=== PATIENT | male | born 1995 | race Caucasian/White ===

== ENCOUNTER → 2018-08-19 | Outpatient (REF) | payer OTHER ==
[2018-08-19 12:12] LABS: ESTIMATED AVERAGE GLUCOSE 108 MG/DL (60-110); HEMOGLOBIN A1c 5.4 %
[2018-08-19 12:24] LABS: CHOLESTEROL LEVEL 189 MG/DL (<200); CHOLESTEROL RISK RATIO 5.906 (<5); HDL CHOLESTEROL 32 MG/DL (>40); LDL CHOLESTEROL 127 MG/DL (<100); NON-HDL-C 157 MG/DL; TRIGLYCERIDES LEVEL 151 MG/DL (<150)
== END ==
LOC: M SFHCLERA 09:57
DX: E66.09 Other obesity due to excess calories (principal)

== ENCOUNTER → 2018-09-14 | Outpatient (REF) | payer OTHER ==
[2018-09-14 11:55] LABS: PROGRESSIVE MOTILITY (a) 47 % (>=32); SEMEN APPEARANCE OPAQUE (OPAQUE); SEMEN VISCOSITY LIQUID (LIQUID); WBC CONCENTRATION <=1 M/ml (<=1 M/ml)
[2018-09-14 11:56] LABS: % NORMAL FORMS 11 % (>=4); IMMOTILITY 37 %; NON PROGRESSIVE MOTILITY (c) 16 %; SPERM# 86.9 M/Ejac (>=39); TOTAL FUNCTIONAL 10.1 M/Ejac.; TOTAL MOTILITY 63 % (>=40)
[2018-09-16 11:26] LABS: TOTAL PROGRESSIVE SPERM 40.9 M/Ejac.
== END ==
LOC: M SFHCLERA 11:20
DX: Z31.69 Encounter for other general counseling and advice on procreation (principal)
CPT/HCPCS: 89321

== ENCOUNTER → 2018-09-20 | Outpatient (CLI) | payer OTHER | LOC: M RAD 14:20 | DX: N50.9 Disorder of male genital organs, unspecified (principal); N43.3 Hydrocele, unspecified | CPT/HCPCS: 76870 ==

== ENCOUNTER 2020-07-26 20:56 | Emergency (ER) | payer OTHER ==
[~2020-07-26] VITALS: Ht 170.2 cm; Wt 112.6 kg
[2020-07-26] MEDS ORDERED: VALT1TAB PO (22:38)
[2020-07-26] MEDS ORDERED: valACYclovir HCL 500 MG TAB PO ONE (22:45)
[2020-07-26 22:54] VITALS: BP 148/88
[2020-07-26 23:01] LABS: CHLAMYDIA DNA AMPLIFICATION NEGATIVE (NEGATIVE); GC DNA AMPLIFICATION NEGATIVE (NEGATIVE)
[2020-08-01 08:10] LABS: HSV-1 DNA Negative (Negative); HSV-2 DNA Negative (Negative)
== END 2020-07-26 22:56 | disposition home or self-care (01) ==
LOC: M ED 20:56
DX: A60.02 Herpesviral infection of other male genital organs (principal); N48.5 Ulcer of penis; K58.9 Irritable bowel syndrome, unspecified

== ENCOUNTER → 2020-09-11 | Outpatient (CLI) | payer OTHER ==
[~2020-09-11] MED LIST: VALT1TAB PO
--- NOTE | 2020-09-11 15:56 | REPVR ---
PROCEDURE INFORMATION: Exam: US Scrotum Exam date and time: 09/11/2020 3:43 PM Age: 25 years old Clinical indication: Other: Left lump; Additional info: Testicular mass TECHNIQUE: Imaging protocol: Real-time ultrasound of the scrotum and contents with color Doppler and image documentation. COMPARISON: Scrotal, US 09/20/2018 2:35 PM FINDINGS: Right testicle: Right testicle measures 4.6 x 2.2 x 3.2 cm. Positive right testicular blood flow. No right testicular mass. Left testicle: Left testicle measures 4.4 x 2.4 x 3.2 cm. Positive left testicular blood flow. No left testicular mass. Epididymides: Incidental 2 mm right epididymal cyst. Chronic mild heterogeneity of the left epididymal head. Scrotum: Normal. IMPRESSION: No significant scrotal abnormality. Electronically signed by: Marcia Valderrama On 09/11/2020 15:56:47 PM
== END ==
LOC: M RAD 15:07
PROVIDERS: ATTEND Nurse Practitioner Family
DX: N50.89 Other specified disorders of the male genital organs (principal)

== ENCOUNTER → 2020-10-26 | Outpatient (REF) | payer OTHER ==
[2020-10-26 17:34] LABS: INFLUENZA A AMPLIFICATION NEGATIVE (NEGATIVE); INFLUENZA B AMPLIFICATION NEGATIVE (NEGATIVE)
== END ==
LOC: M LAB REF 16:17
PROVIDERS: ATTEND Physician Assistant Medical
DX: J11.1 Influenza due to unidentified influenza virus with other respiratory manifestations (principal)

== ENCOUNTER 2020-11-03 17:03 | Emergency (ER) | payer OTHER ==
[~2020-11-03] VITALS: Ht 170.2 cm; Wt 107.1 kg
[2020-11-03] MEDS ORDERED: NS 1,000 ML IV ONE (18:00)
[2020-11-03] MEDS ORDERED: ONDANSETRON 4MG/2ML VIAL IV ONE (18:00)
[2020-11-03 18:32] LABS: BASO % 0.1 % (0.0-1.0); EOS # 0.1 10^3/uL (0.0-0.5); EOS % 0.9 % (0.0-3.0); HEMATOCRIT 46.3 % (42.0-52.0); HEMOGLOBIN 15.1 g/dl (13.5-17.5); LYMPH # 1.6 10^3/uL (1.5-5.0); LYMPH % 22.7 % (24.0-44.0); MEAN CORPUSCULAR HEMOGLOBIN 27.3 pg (27.0-33.0); MEAN CORPUSCULAR HGB CONC 32.6 g/dl (32.0-36.5); MEAN CORPUSCULAR VOLUME 83.6 fl (80.0-96.0); MONO # 0.4 10^3/uL (0.0-0.8); NEUTROPHILS # 4.9 10^3/uL (1.5-8.5); NEUTROPHILS % 69.7 % (36.0-66.0); PLATELET COUNT, AUTOMATED 244 10^3/uL (150-450); RED BLOOD COUNT 5.54 10^6/uL (4.30-6.10)
[2020-11-03 19:01] LABS: ALT/SGPT 32 U/L (12-78); BLOOD UREA NITROGEN 15 MG/DL (7-18); CALCIUM LEVEL 8.5 MG/DL (8.5-10.1); CARBON DIOXIDE LEVEL 27 MEQ/L (21-32); CHLORIDE LEVEL 109 MEQ/L (98-107); CREATININE FOR GFR 1.15 MG/DL (0.70-1.30); GLOMERULAR FILTRATION RATE > 60.0 (>60); GLUCOSE, FASTING 87 MG/DL (70-100); POTASSIUM SERUM 3.8 MEQ/L (3.5-5.1); SODIUM LEVEL 142 MEQ/L (136-145)
[2020-11-03 19:02] LABS: ALBUMIN 3.9 GM/DL (3.2-5.2); BILIRUBIN,DIRECT 0.1 MG/DL (0.0-0.2); BILIRUBIN,TOTAL 0.6 MG/DL (0.2-1.0); LIPASE 92 U/L (73-393); RSV AMPLIFICATION NEGATIVE (NEGATIVE); TOTAL PROTEIN 7.9 GM/DL (6.4-8.2)
[2020-11-03 19:07] LABS: MONO REFLEX EBV COMP NEGATIVE (NEGATIVE)
[2020-11-03] MEDS ORDERED: ZOFR4TAB16 PO (19:57)
[2020-11-03 20:28] VITALS: BP 131/69
--- NOTE | 2020-11-03 20:32 | REPVR ---
PROCEDURE INFORMATION: Exam: XR Chest, 1 View Exam date and time: 11/03/2020 8:12 PM Age: 25 years old Clinical indication: Cough; Additional info: Cough, fever TECHNIQUE: Imaging protocol: XR of the chest Views: 1 view. COMPARISON: No relevant prior studies available. FINDINGS: Lungs: Right lower lung zone infiltrate. Remaining lungs are clear. Pleural space: Unremarkable. No pleural effusion. No pneumothorax. Heart/Mediastinum: Unremarkable. No cardiomegaly. Bones/joints: Unremarkable. IMPRESSION: Right lower lung zone infiltrate. Electronically signed by: Sergio Marquez On 11/03/2020 20:32:10 PM
[2020-11-03] MEDS ORDERED: AMOX500C PO (21:05)
[2020-11-06 14:12] LABS: EBV VIRAL CAPSID AG IgM <36.0 U/mL (0.0-35.9)
== END 2020-11-03 20:40 | disposition home or self-care (01) ==
LOC: M ED 17:03 → EEVIPCON 17:03 → M ED 20:40
DX: U07.1 COVID-19 (principal); J12.89 Other viral pneumonia; R05 Cough; R11.2 Nausea with vomiting, unspecified; R50.81 Fever presenting with conditions classified elsewhere; R10.30 Lower abdominal pain, unspecified; R09.81 Nasal congestion; M79.10 Myalgia, unspecified site
CPT/HCPCS: 71045; 80048; 80076; 83605; 83690; 85025; 86308; 86664; 86665; 87631; 96361; 96374; 99284; J2405

== ENCOUNTER 2021-01-04 01:08 | Emergency (ER) | payer OTHER ==
[~2021-01-04] VITALS: Ht 170.2 cm; Wt 115.2 kg
[~2021-01-04 01:08] MED LIST changes: +AMOX500C PO; +ZOFR4TAB16 PO
--- OUTSIDE RECORDS SUMMARY | 2021-01-04 01:18 | CCD ---
Author Author [facility] Organization [facility] Address Unknown Phone Unavailable Support Name Relationship Address Phone SUPERWALM Next Of Kin [address] [place] [address] [facility] Next Of Kin [address] [facility] [address] [place] [address] TYLER DA SILVA Next Of Kin [address] [facility] [address] [place] [address] UE Next Of Kin Unknown Unavailable [employer] Next Of Kin [address] [place] [address] Anna Clifford MD Next Of Kin [address] [place] [address] [address] [place] [address] [employer] [place] [address] Next Of Kin Unknown Unavailable JACOBO REYNOSO Next Of Kin [address] [place] [address] Angelica HARTMAN Next Of Kin [address] [facility] [address] [place] [address] TYLER DA SILVA ECON [address] [place] [address] Unavailable Re-disclosure Warning The records that you are about to access may contain information from federally-assisted alcohol or drug abuse programs. If such information is present, then the following federally mandated warning applies: This information has been disclosed to you from records protected by federal confidentiality rules (42 CFR part 2). The federal rules prohibit you from making any further disclosure of this information unless further disclosure is expressly permitted by the written consent of the person to whom it pertains or as otherwise permitted by 42 CFR part 2. A general authorization for the release of medical or other information is NOT sufficient for this purpose. The Federal rules restrict any use of the information to criminally investigate or prosecute any alcohol or drug abuse patient.The records that you are about to access may contain highly sensitive health information, the redisclosure of which is protected by Article 27-F of the [facility] Public Health law. If you continue you may have access to information: Regarding HIV / AIDS; Provided by facilities licensed or operated by the [facility] Office of Mental Health; or Provided by the [facility] Office for People With Developmental Disabilities. If such information is present, then the following [facility] mandated warning applies: This information has been disclosed to you from confidential records which are protected by state law. State law prohibits you from making any further disclosure of this information without the specific written consent of the person to whom it pertains, or as otherwise permitted by law. Any unauthorized further disclosure in violation of state law may result in a fine or prison sentence or both. A general authorization for the release of medical or other information is NOT sufficient authorization for further disc losure. Encounters Encounter Providers Location Date Indications Data Source(s ) Outpatient [address] [facility] [id number] 09/20/2020 12:00:00 AM EDT eCW1 ([facility]) Unknown [address] [facility] [id number] 09/12/2020 12:00:00 AM EDT eCW1 ([facility]) Outpatient [address] [facility] [id number] 09/11/2020 12:00:00 AM EDT eCW1 ([facility]) Unknown [address] [facility] [id number] 09/10/2020 12:00:00 AM EDT eCW1 ([facility]) Medications Medication Brand Name Start Date Product Form Dose Route Admi nistrative Instructions Pharmacy Instructions Status Indications Reaction Description Data Source(s) 500 mg 11/04/2020 12:00:00 AM EST capsule 30 TAKE ONE CAPSULE BY MOUTH EVERY 8 HOURS TAKE ONE CAPSULE BY MOUTH EVERY 8 HOURS SOLD: 11/04/2020 [facility] 4 mg 11/04/2020 12:00:00 AM EST tablet 5 TAKE ONE TABLET BY MOUTH EVERY 6 TO 8 HOURS NEEDED FOR FOR NAUSEA AND VOMITING TAKE ONE TABLET BY MOUTH EVERY 6 TO 8 HOURS NEEDED FOR FOR NAUSEA AND VOMITING SOLD: 11/04/2020 [facility] Insurance Providers Payer name Policy type / Coverage type Policy ID Covered green party ID Covered green party's relationship to piedra Policy Piedra Plan Information [facility] [id number] SP [id number] [facility] O [id number] S [id number] ANSI-Medicaid [id number] ANS-Medicaid [id number] ANSI-Medicaid [id number] ANS-Medicaid [id number] Managed Care - Community Plan [facility] P [id number] S [id number] Medicaid S [id number] S [id number] [facility] [id number] SP [id number] [facility] [id number] SP [id number] [facility] I [id number] Self [id number] MEDICAID M [id number] Self [id number] UNHC COMMUNITY PLAN MCDO [id number] SP [id number] Managed Care - Community Plan [facility] P [id number] S [id number] Managed Care - Community Plan [facility] P [id number] S [id number] Medicaid S [id number] S [id number] MEDICAID [id number] SP [id number] SELF PAY UNAVAILABLE SP UNAVAILA BLE [facility] P [id number] S [id number] UN COMMUNITY [facility]AN [facility] [id number] SP [id number] [facility] P [id number] S [id number] Medicaid Dental S [id number] S [id number] PUPILS BENEFIT PLAN S [id number] S [id number] Results ID Date Data Source [id number] 12/15/2020 12:00:00 AM EST [facility] Name Value Range Interpretation Code Description Data Ellen rce(s) Supporting Document(s) SARS-CoV2 Rapid Antigen Negative [facility] This lab was ordered by [facility] and [facility] ID Date Data Source [id number] 11/13/2020 12:00:00 AM EST [facility] Name Value Range Interpretation Code Description Data Ellen rce(s) Supporting Document(s) SARS coronavirus 2 RNA [facility] This lab was ordered by [facility] and rep orted by [facility]. ID Date Data Source [id number] 11/03/2020 06:17:00 PM EST [facility] Name Value Range Interpretation Code Description Data Ellen rce(s) Supporting Document(s) SARS coronavirus 2 RNA [Presence] in Res piratory specimen by ERNESTINE with probe detection [facility] This lab was ordered by [facility] a nd reported by [facility]. ID Date Data Source [id number] 10/26/2020 02:00:00 PM EST [facility] Name Value Range Interpretation Code Description Data Ellen rce(s) Supporting Document(s) SARS coronavirus 2 RNA [facility] This lab was ordered by [facility] and reported by [facility]. ID Date Data Source [facility] [place] 09/12/2020 09:28:50 AM EDT eCW1 ([facility]) Name Value Range Interpretation Code Description Data Ellen rce(s) Supporting Document(s) [facility] [place] eCW1 ([facility]) ID Date Data Source Urinalysis, no micro 09/11/2020 10:41:54 AM EDT eCW1 ([facility]) Name Value Range Interpretation Code Description Data Ellen rce(s) Supporting Document(s) 1.025 Spec gravity eCW1 ([facility]) neg Nitrate eCW1 ([facility]) 5 pH eCW1 ([facility]) trace Protein eCW1 ([facility]) neg Leukocyte eCW1 ([facility]) neg Ketones eCW1 ([facility]) neg Glucose eCW1 ([facility]) neg Bilirubin eCW1 ([facility]) neg Urobili eCW1 ([facility]) neg Blood eCW1 ([facility]) yes Internal QC Acceptable (Y/N) e CW1 ([facility]) Procedure Social History Code Duration Value Status Description Data Source(s ) Smoking 09/20/2020 12:00:00 AM EDT Never Smoker completed Never S moker eCW1 ([facility]) Smoking 09/11/2020 12:00:00 AM EDT Never Smoker completed Never S moker eCW1 ([facility]) Smoking 09/11/2020 12:00:00 AM EDT Never Smoker completed Never S moker eCW1 ([facility]) Vital Signs ID Date Data Source UNK Name Value Range Interpretation Code Description Data Source(s) Diastolic blood pressure 79 mm[Hg] 79 mm[Hg] eCW1 ([facility]) Systolic blood pressure 123 mm[Hg] 123 mm[Hg] e CW1 ([facility]) Body temperature 97.3 [degF] 97.3 [degF] eCW1 ( [facility]) Respiratory rate 17 /min 17 /min eCW1 ([facility]) Heart rate 65 /min 65 /min eCW1 ([facility]) Body mass index (BMI) [Ratio] 39.40 kg/m2 39.40 kg/m2 W1 ([facility]) Body height 67 [in_i] 67 [in_i] eCW1 ([facility]) Body weight 251.6 [lb_av] 251.6 [lb_av] eCW1 ([facility]) Diastolic blood pressure 79 mm[Hg] 79 mm[Hg] eCW1 ([facility]) Systolic blood pressure 151 mm[Hg] 151 mm[Hg] e CW1 ([facility]) Body temperature 97.3 [degF] 97.3 [degF] eCW1 ( [facility]) Respiratory rate 18 /min 18 /min eCW1 ([facility]) Heart rate 73 /min 73 /min eCW1 ([facility]) Body mass index (BMI) [Ratio] 39.15 kg/m2 39.15 kg/m2 eCW1 ([facility]) Body height 67 [in_i] 67 [in_i] eCW1 ([facility]) Body weight 250 [lb_av] 250 [lb_av] eCW1 ([facility])
[2021-01-04] MEDS ORDERED: ISOVUE-370 76% 100ML VIAL As Ordered ONE (01:57)
[2021-01-04 02:12] LABS: BASO % 0.4 % (0.0-1.0); EOS # 0.2 10^3/uL (0.0-0.5); EOS % 2.8 % (0.0-3.0); HEMATOCRIT 43.8 % (42.0-52.0); HEMOGLOBIN 14.2 g/dl (13.5-17.5); LYMPH # 2.8 10^3/uL (1.5-5.0); LYMPH % 35.5 % (24.0-44.0); MEAN CORPUSCULAR HGB CONC 32.4 g/dl (32.0-36.5); MEAN CORPUSCULAR VOLUME 83.4 fl (80.0-96.0); MONO # 0.5 10^3/uL (0.0-0.8); MONO % 6.4 % (0.0-5.0); NEUTROPHILS # 4.3 10^3/uL (1.5-8.5); NEUTROPHILS % 54.6 % (36.0-66.0); PLATELET COUNT, AUTOMATED 271 10^3/uL (150-450); RED BLOOD COUNT 5.25 10^6/uL (4.30-6.10); WHITE BLOOD COUNT 7.8 10^3/uL (4.0-10.0)
[2021-01-04 02:54] LABS: ALBUMIN 3.9 GM/DL (3.2-5.2); ALT/SGPT 57 U/L (12-78); BILIRUBIN,DIRECT < 0.1 MG/DL (0.0-0.2); BILIRUBIN,TOTAL 0.2 MG/DL (0.2-1.0); LIPASE 81 U/L (73-393); NT-PRO BNP 13 PG/ML (<125); TOTAL PROTEIN 7.6 GM/DL (6.4-8.2)
--- NOTE | 2021-01-04 02:58 | REPVR ---
PROCEDURE INFORMATION: Exam: XR Chest, 1 View Exam date and time: 01/04/2021 2:02 AM Age: 25 years old Clinical indication: Chest pain TECHNIQUE: Imaging protocol: XR of the chest Views: 1 view. COMPARISON: CR Chest, 1 view 2020-11-03 20:02 FINDINGS: Lungs: Unremarkable. No consolidation. Pleural spaces: Unremarkable. No pleural effusion. No pneumothorax. Heart/Mediastinum: Unremarkable. No cardiomegaly. Bones/joints: Unremarkable. Other findings: I IMPRESSION: No acute findings. Electronically signed by: Rufino Nugent On 01/04/2021 02:58:25 AM
--- NOTE | 2021-01-04 03:00 | REPVR ---
PROCEDURE INFORMATION: Exam: CT Angiography Chest With Contrast Exam date and time: 01/04/2021 1:52 AM Age: 25 years old Clinical indication: Chest pain; Type not specified; Additional info: R/O pe TECHNIQUE: Imaging protocol: Computed tomographic angiography of the chest with contrast. 3D rendering (Not supervised by radiologist): MIP and/or 3D reconstructed images were created by the technologist. Radiation optimization: All CT scans at this facility use at least one of these dose optimization techniques: automated exposure control; mA and/or kV adjustment per patient size (includes targeted exams where dose is matched to clinical indication); or iterative reconstruction. Contrast material: ISO; Contrast volume: 75 ml; Contrast route: INTRAVENOUS (IV); COMPARISON: 1. CR Chest, 1 view 2021-01-04 02:04 2. CR Chest, 1 view 2020-11-03 20:02 FINDINGS: Limitations: Limited by patient's body habitus. Pulmonary arteries: Normal. No pulmonary emboli. Aorta: Unremarkable. No aortic aneurysm. No aortic dissection. Lungs: Unremarkable. No consolidation. No masses. Pleural spaces: Unremarkable. No pneumothorax. No pleural effusion. Heart: Unremarkable. No cardiomegaly. No pericardial effusion. Lymph nodes: Unremarkable. No enlarged lymph nodes. Bones/joints: Unremarkable. No acute fracture. Soft tissues: Unremarkable. IMPRESSION: No acute findings. Electronically signed by: Rufino Nugent On 01/04/2021 03:00:17 AM
--- OUTSIDE RECORDS SUMMARY | 2021-01-04 03:12 | CCD ---
Author Author [facility] Organization [facility] Address Unknown Phone Unavailable Support Name Relationship Address Phone SUPERWALM Next Of Kin [address] [place] [address] [facility] Next Of Kin [address] [facility] [address] [place] [address] TYLER DA SILVA Next Of Kin [address] [facility] [address] [place] [address] UE Next Of Kin Unknown Unavailable [employer] Next Of Kin [address] [place] [address] Anna Clifford MD Next Of Kin [address] [place] [address] [address] [place] [address] [employer] [place] [address] Next Of Kin Unknown Unavailable JACOBO REYNOSO Next Of Kin [address] [place] [address] Angelica HARTMAN Next Of Kin [address] [facility] [address] [place] [address] TYLER DA SILVA ECON [address] [place] [address] Unavailable Re-disclosure Warning The records that you [...] is protected by Article 27-F of the [facility] Public Health law. If you continue you may have access to information: Regarding HIV / AIDS; Provided by facilities licensed or operated by the [facility] Office of Mental Health; or Provided by the [facility] Office for People With Developmental Disabilities. If such information is present, then the following [facility] mandated warning applies: This information has [...] law may result in a fine or senior living sentence or both. A general authorization for the release of medical or other information is NOT sufficient authorization for further disc losure. Encounters Encounter Providers Location Date Indications Data Source(s ) Outpatient [address] [facility] [id number] 09/20/2020 12:00:00 AM EDT eCW1 ([facility]) Unknown [address] [facility] [id number] 09/12/2020 12:00:00 AM EDT eCW1 ([facility]) Outpatient [address] [facility] [id number] 09/11/2020 12:00:00 AM EDT eCW1 ([facility]) Unknown [address] [facility] [id number] 09/10/2020 12:00:00 AM EDT eCW1 ([facility]) Medications Medication Brand Name Start Date Product [...] type / Coverage type Policy ID Covered republican ID Covered republican's relationship to piedra Policy Piedra Plan Information [facility] COMM[facility]ITY [facility] [id number] SP [id number] [facility] O [id number] S [id number] ANSI-Medicaid [id number] ANS-Medicaid [id number] ANSI-Medicaid [id number] ANS-Medicaid [id number] Managed Care - Community Plan [facility] P [id number] S [id number] Medicaid S [id number] S [id number] [facility] COMMUNITY PLAN [facility] [id number] SP [id number] [facility] [id number] SP [id number] [facility] I [id number] Self [id number] MEDICAID M [id number] Self [id number] UNHC COMMUNITY PLAN MCDO [id number] SP [id number] Managed Care - Community Plan [facility] P [id number] S [id number] Managed Care - Community Plan [facility] P [id number] S [id number] Medicaid S [id number] S [id number] MEDICAID [id number] SP [id number] SELF PAY UNAVAILABLE SP UNAVAILA BLE [facility] P [id number] S [id number] UN COMMUNITY PLAN [facility] [id number] SP [id number] [facility] P [id number] S [id number] Medicaid Dental S [id number] S [id number] [facility] PUPILS BENEFIT PLAN S [id number] S [id number] Results ID Date Data Source [id number] 12/15/2020 12:00:00 AM EST [facility] Name Value Range Interpretation Code Description Data Ellen rce(s) Supporting Document(s) SARS-CoV2 Rapid Antigen Negative [facility] This lab was ordered by [facility] and [facility] ID Date Data Source [id number] 11/13/2020 12:00:00 AM EST [facility] Name Value Range Interpretation Code Description Data Ellen rce(s) Supporting Document(s) SARS coronavirus 2 RNA [facility] This lab was ordered by [facility] and rep orted by [facility]. ID Date Data Source [id number] 11/03/2020 06:17:00 PM EST [facility] Name Value Range Interpretation Code Description Data Ellen rce(s) Supporting Document(s) SARS coronavirus 2 RNA [Presence] in Res piratory specimen by ERNESTINE with probe detection [facility] This lab was ordered by [facility] a nd reported by [facility]. ID Date Data Source [id number] 10/26/2020 02:00:00 PM EST [facility] Name Value Range Interpretation Code Description Data Ellen rce(s) Supporting Document(s) SARS coronavirus 2 RNA [facility] This lab was ordered by [facility] and reported by [facility]. ID Date Data Source [facility] [place] 09/12/2020 09:28:50 AM EDT eCW1 ([facility]) Name Value Range Interpretation Code Description Data Ellen rce(s) Supporting Document(s) [facility] [place] eCW1 ([facility]) ID Date Data Source Urinalysis, no micro 09/11/2020 10:41:54 AM EDT eCW1 ([facility]) Name Value Range Interpretation Code Description Data Ellen rce(s) Supporting Document(s) 1.025 Spec gravity [facility]1 [facility] neg Nitrate eCW1 ([facility]) 5 pH eCW1 ([facility]) trace Protein eCW1 ([facility]) neg Leukocyte eCW1 ([facility]) neg Ketones eCW1 ([facility]) neg Glucose eCW1 ([facility]) neg Bilirubin eCW1 ([facility]) neg Urobili eCW1 ([facility]) neg Blood eCW1 ([facility]) yes Internal QC Acceptable (Y/N) e CW1 ([facility]) Procedure Social History Code Duration Value Status Description Data Source(s ) Smoking 09/20/2020 12:00:00 AM EDT Never Smoker completed Never S moker eCW1 ([facility]) Smoking 09/11/2020 12:00:00 AM EDT Never Smoker completed Never S moker eCW1 ([facility]) Smoking 09/11/2020 12:00:00 AM EDT Never Smoker completed Never S moker eCW1 ([facility]) Vital Signs ID Date Data Source UNK Name Value Range Interpretation Code Description Data Source(s) Diastolic blood pressure 79 mm[Hg] 79 mm[Hg] eCW1 ([facility]) Systolic blood pressure 123 mm[Hg] 123 mm[Hg] e CW1 ([facility]) Body temperature 97.3 [degF] 97.3 [degF] eCW1 ( [facility]) Respiratory rate 17 /min 17 /min eCW1 ([facility]) Heart rate 65 /min 65 /min eCW1 ([facility]) Body mass index (BMI) [Ratio] 39.40 kg/m2 39.40 kg/m2 W1 ([facility]) Body height 67 [in_i] 67 [in_i] eCW1 ([facility]) Body weight 251.6 [lb_av] 251.6 [lb_av] eCW1 ([facility]) Diastolic blood pressure 79 mm[Hg] 79 mm[Hg] eCW1 ([facility]) Systolic blood pressure 151 mm[Hg] 151 mm[Hg] e CW1 ([facility]) Body temperature 97.3 [degF] 97.3 [degF] eCW1 ( [facility]) Respiratory rate 18 /min 18 /min eCW1 ([facility]) Heart rate 73 /min 73 /min eCW1 ([facility]) Body mass index (BMI) [Ratio] 39.15 kg/m2 39.15 kg/m2 eCW1 ([facility]) Body height 67 [in_i] 67 [in_i] eCW1 ([facility]) Body weight 250 [lb_av] 250 [lb_av] eCW1 ([facility])
[2021-01-04 03:13] VITALS: BP 134/90
--- NOTE | 2021-01-04 05:40 | ECGEPIP ---
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
== END 2021-01-04 03:22 | disposition home or self-care (01) ==
LOC: M ED 01:08
DX: R07.9 Chest pain, unspecified (principal); R94.6 Abnormal results of thyroid function studies; R06.02 Shortness of breath; K58.9 Irritable bowel syndrome, unspecified
CPT/HCPCS: 36415; 71045; 71275; 80047; 80076; 83690; 83880; 84439; 84443; 85025; 93005; 93041; 94760; 99285; Q9967

== ENCOUNTER 2021-01-23 00:27 | Emergency (ER) | payer OTHER ==
[~2021-01-23] VITALS: Ht 170.2 cm; Wt 115.5 kg
--- NOTE | 2021-01-23 01:59 | REPVR ---
PROCEDURE INFORMATION: Exam: XR Right Hand Exam date and time: 01/23/2021 1:24 AM Age: 25 years old Clinical indication: Swelling; Hand; Right; Patient HX: Punched wall; Additional info: Swelling/ dec rom TECHNIQUE: Imaging protocol: XR Right hand. Views: 3 or more views. COMPARISON: No relevant prior studies available. FINDINGS: Bones/joints: Question of old fracture of the distal 5th metacarpal. Displaced fragment at the dorsal aspect of the 5th carpometacarpal joint with rounded margins consistent with residua of fracture which may be acute and may originate from the dorsum of the distal hamate. Soft tissues: Mild soft tissue swelling along the ulnar aspect of the hand. IMPRESSION: 1. Displaced fragment at the dorsum of the 5th carpometacarpal joint consistent with residua of fracture of uncertain age. The fragment may originate from the dorsum of the distal hamate. 2. Question of old fracture of the distal 5th metacarpal with bowed configuration of the 5th metacarpal. 3. Otherwise negative right hand. Electronically signed by: Narayan Wang On 01/23/2021 01:59:38 AM
[2021-01-23 02:08] VITALS: BP 137/81
== END 2021-01-23 02:18 | disposition home or self-care (01) ==
LOC: M ED 00:27
DX: R22.31 Localized swelling, mass and lump, right upper limb (principal)

== ENCOUNTER 2021-07-10 07:56 | Emergency (ER) | payer OTHER ==
[~2021-07-10] VITALS: Ht 170.2 cm; Wt 118.5 kg
[2021-07-10] MEDS ORDERED: ACETAMINOPHEN 325 MG TAB PO ONE (10:00)
[2021-07-10 11:28] VITALS: BP 114/55
== END 2021-07-10 11:52 | disposition home or self-care (01) ==
LOC: M ED 07:56
DX: J06.9 Acute upper respiratory infection, unspecified (principal)

== ENCOUNTER → 2021-08-04 | Outpatient (CLI) | payer OTHER ==
--- NOTE | 2021-08-04 17:35 | REP ---
INDICATION: INJURY RT ANKLE COMPARISON: None. TECHNIQUE: Four views right ankle. FINDINGS: There is no evidence of acute fracture, dislocation, or intrinsic bone disease.There is mild lateral soft tissue swelling. The ankle mortise is anatomic. IMPRESSION: No fracture or dislocation. <Electronically signed by Armond Granados > 08/04/21 [id number]
== END ==
LOC: M RAD 16:24
PROVIDERS: ATTEND Physician Assistant
DX: S99.911A Unspecified injury of right ankle, initial encounter (principal)

== ENCOUNTER 2021-10-08 12:21 | Emergency (ER) | payer OTHER ==
[~2021-10-08] VITALS: Ht 170.2 cm; Wt 113.6 kg
--- OUTSIDE RECORDS SUMMARY | 2021-10-08 12:27 | CCD | Continuity of Care Document ---
Author Author Perry BARKER MD Organization Unknown Address [address] [place] [address] Phone [phone] Care Team Providers Care Hog Slaughterer Name Role Phone Aguialr Bolivar DO AUTM [phone] Problems Description No Information Available Social History Type Date Description Comments Sex Unknown ETOH Use Rarely consumes alcohol Tobacco Use Start: Unknown Denies Smoking Allergies and adverse reactions Description No Known Drug Allergies Medications Description No Active Medications Immunizations Description No Information Available Vital Signs Description No Information Available Results Description No Information Available Procedures Date Code Description Status 08/30/2021 38470 Office/Outpatient Established Lo w MDM 20-29 Min Completed 08/30/2021 06079 X-Ray Ankle Complete Completed 08/30/2021 56324 X-Ray Tibia & Fibula Ap & Latera l 2 Views Completed Medical Devices Description No Information Available Encounters Type Date Location Provider Dx Diagnosis Office Visit 08/30/2021 9:30a [place] Kristen Barker MD S9 3.401A Sprain of unspecified ligament of right ankle, init encntr Assessments Date Code Description Provider 08/30/2021 S93.401A Sprain of unspecifie d ligament of right ankle, initial encounter Kristen Barker MD 08/30/2021 S93.401A Sprain of unspecifie d ligament of right ankle, initial encounter Kristen Barker MD Plan of Treatment Future Appointment(s):* 09/30/2021 3:00 pm - Kristen Barker MD at [place] 08/30/2021 - Kristen Barker MD* S93.401A Sprain of unspecified ligament of right ankle, initial encounter* Follow up:* 3-4 weeks for rt ankle recheck with DPV * All * New Medication:* No Active Medications - Functional Status Description No Information Available Mental Status Description No Information Available Referrals Refer to Reason for Referral Status Appt Date Nikkie Barker MD OV M25.571 PAIN IN RT ANK LE AND JOINTS OF RIGHT FOOT Created [address] [facility], [address] [place] [address] [phone]
--- OUTSIDE RECORDS SUMMARY | 2021-10-08 12:27 | CCD | Continuity of Care Document ---
Author Author Perry HOOD MD Organization Unknown Address [address] [place] [address] [place] [address] Phone [phone] Care Team Providers Care Graphic Engineer Name Role Phone Aguilar Bolivar DO AUTM [phone] Problems Description No Information Available Social History Type Date Description Comments Sex Unknown Allergies and adverse reactions Description No Information Available Medications Active Medications SIG Qnty Indications Ordering Provide r Date Ibuprofen 600mg Tablets 1 tab by mouth three times a day 90tabs Hoang Foley MD 01/31/2021 Immunizations Description No Information Available Vital Signs Description No Information Available Results Description No Information Available Procedures Date Code Description Status 08/30/2021 61207 X-Ray Ankle Complete Completed 08/30/2021 92451 X-Ray Tibia & Fibula Ap & Latera l 2 Views Completed Medical Devices Description No Information Available Encounters Description No Information Available Assessments Date Code Description Provider 08/30/2021 S93.401A Sprain of unspecifie d ligament of right ankle, initial encounter Kristen Hood MD Plan of Treatment 08/30/2021 - Kristen Hood MD* S93.401A Sprain of unspecified ligament of right ankle, initial encounter* New Orders:* Ankle Lace Up W/Stays - Right, Ordered: 08/30/21 * Follow up:* 3-4 weeks for rt ankle recheck with DPV Functional Status Description No Information Available Mental Status Description No Information Available Referrals Refer to Reason for Referral Status Appt Date Nikkie Hood MD PAIN IN RT ANKLE AND JOINTS OF RIGH T FOOT - M25.[address] [place] [address], [address] [place] [address] [phone]
--- OUTSIDE RECORDS SUMMARY | 2021-10-08 12:27 | CCD ---
Author Author [facility] Organization [facility] Address Unknown Phone Unavailable Care Team Providers Care Cardiopulmonary Technician And Eeg Tech Name Role Phone KikeEfe andradehel Unavailable PROBLEMS Type Condition ICD9-CM Code [id number] Code Onset Dates Condition S tatus W/U Status Risk SNOMED Code Notes Problem Mood disorder F39 Active confirmed 564248 05 Problem Other obesity due to excess calories E66.09 Act stevenson confirmed 269384626 Problem Symptoms consistent with irritable bowel syndrome K58.9 Active confirmed 53638643 Problem Body mass index (BMI) of 38.0-38.9 in adult Z68.38 Active confirmed 094395010 ALLERGIES No Known Allergies ENCOUNTERS from 1997 to 2021-09-04 Encounter Location Date Provider Diagnosis [facility] [address] [phone] [place] [address] Aug, Michelle Solomon IMMUNIZATIONS No Information SOCIAL HISTORY Tobacco Use: Social History Observation Description Date Details (start date - stop date) Never Smoker Sex Assigned At : Social History Observation Description Sex Assigned At Unknown Education: Question Answer Notes Level of Education: Not finished High School Audit Question Answer Notes Total Score: 0 Interpretation: Alcohol Education Language: Question Answer Notes Languages spoken: Kinyarwanda Sabianist: Question Answer Notes Sabianist 33 None Domestic Violence: Question Answer Notes Status: Drug and Alcohol Question Answer Notes Total Score: 0 Interpretation: No problems reported Alcohol Screening: Question Answer Notes Did you have a drink containing alcohol in the past year? No Points 0 Interpretation Negative BMI Care Goal Follow-Up Question Answer Notes Above Normal BMI Follow-Up Dietary management educatio n, guidance, and counseling Tobacco Use: Question Answer Notes Are you a: never smoker REASON FOR REFERRAL No Information VITAL SIGNS No information MEDICATIONS Medication SIG (Take, Route, Frequency, Duration) Notes Start Da te End Date Status Valium 10 MG 1 tablet as needed Orally as directed- 1 hour pr ior to procedure Aug, Active Ibuprofen 200 MG 2 tablet with food or milk as needed Orally every 6 hrs Not-Taking Benzonatate 200 MG 1 capsule Orally Three times a day as needed for cough for 30 day(s) Jul, Not-Taking PROCEDURES No Information RESULTS No Results REASON FOR VISIT [facility] MEDICAL (GENERAL) HISTORY Type Description Date Surgical History tonsillectomy Surgical History appendectomy Surgical History L. shoulder surgery Surgical History coloscopy Goals Section No Information Health Concerns No Information MEDICAL EQUIPMENT No Information MENTAL STATUS No Information FUNCTIONAL STATUS No Information ASSESSMENTS No Information PLAN OF TREATMENT Medication Medication Name Sig Start Date Stop Date Valium 10 MG 1 tablet as needed Orally as directed- 1 hour prior to procedure Aug, Next Appt Details Provider Name:Mook Johanny Carpenter, 09:15:00 AM, [address], , [place], [address], Insurance Providers Payer Name Payer Address Payer Phone Insured Name Patient Relati onship to Insured Coverage Start Date Coverage End Date [facility] [employer] [facility] [address] [facility] [phone] FLORY VAZQUEZ self
--- OUTSIDE RECORDS SUMMARY | 2021-10-08 12:27 | CCD | Continuity of Care Document ---
Author Author Perry BARKER MD Organization Unknown Address [address] [place] [address] Phone [phone] Care Team Providers Care Database Architect Name Role Phone Aguilar Bolivar DO AUTM [phone] Problems Description No Information Available Social History Type Date Description Comments Sex Unknown ETOH Use Rarely consumes alcohol Tobacco Use Start: Unknown Denies Smoking Allergies and adverse reactions Description No Known Drug Allergies Medications Description No Active Medications Immunizations Description No Information Available Vital Signs Description No Information Available Results Description No Information Available Procedures Date Code Description Status 08/30/2021 49004 Office/Outpatient Established Lo w MDM 20-29 Min Completed 08/30/2021 63342 X-Ray Ankle Complete Completed 08/30/2021 77808 X-Ray Tibia & Fibula Ap & Latera l 2 Views Completed Medical Devices Description No Information Available Encounters Type Date Location Provider Dx Diagnosis Office Visit 08/30/2021 9:30a [place] Kristen Barker MD S9 3.401A Sprain of unspecified ligament of right ankle, init encntr Assessments Date Code Description Provider 08/30/2021 S93.401A Sprain of unspecifie d ligament of right ankle, initial encounter Kristen Barker MD 08/30/2021 S93.401A Sprain of unspecifie d ligament of right ankle, initial encounter Kristen Barker MD Plan of Treatment Future Appointment(s):* 09/30/2021 3:00 pm - Kristen Barker MD at [place] 08/30/2021 - Kristen Barker MD* S93.401A Sprain [...] AND JOINTS OF RIGHT FOOT Created [address] [facility], [address] [place] [address] [phone]
--- OUTSIDE RECORDS SUMMARY | 2021-10-08 12:27 | CCD ---
Author Author [facility] Organization [facility] Address Unknown Phone Unavailable Care Team Providers Care Accounting Supervisor Name Role Phone KikereMichelle Unavailable PROBLEMS Type Condition ICD9-CM Code QAV03-NR Code Onset Dates Condition S tatus W/U Status Risk SNOMED Code Notes Problem Mood disorder F39 Active confirmed 554176 05 Problem Other obesity due to excess calories E66.09 Act stevenson confirmed 186251366 Problem Symptoms consistent with irritable bowel syndrome K58.9 Active confirmed 86024713 Problem Body mass index (BMI) of 38.0-38.9 in adult Z68.38 Active confirmed 138744920 ALLERGIES No Known Allergies ENCOUNTERS from 1997 to 2021-09-05 Encounter Location Date Provider Diagnosis [facility] [address] [phone] [place] [address] Jul, Michelle Solomon Encounter for vasectomy Z30.2 IMMUNIZATIONS No Information SOCIAL HISTORY Tobacco Use: Social History Observation Description Date Details (start date - stop date) Never Smoker Sex Assigned At : Social History Observation Description Sex Assigned At Unknown Education: Question Answer Notes Level of Education: Not finished High School Audit Question Answer Notes Total Score: 0 Interpretation: Alcohol Education Language: Question Answer Notes Languages spoken: German Mosque: Question Answer Notes Mosque 33 None Domestic Violence: Question Answer Notes [...] you a: never smoker REASON FOR REFERRAL from 1997 to 2021-09-05 Reason Please evaluate and treat as needed Diagnosis 1 Encounter for vasectomy (Z30 .2) Referral Organization [facility] Referring Provider First Name Michelle Referring Provider Last Name Recore Referring Provider Specialty Urology Referred Organization [facility] Referred Provider JuanitoMichelle Referred Address [phone] ,[place], [place],[address] Referred Provider Specialty Urology Referral Priority Routine VITAL SIGNS No information MEDICATIONS Medication SIG [...] Information RESULTS No Results REASON FOR VISIT auth MEDICAL (GENERAL) HISTORY Type Description Date Surgical History tonsillectomy Surgical History appendectomy Surgical History L. shoulder surgery Surgical History coloscopy Goals Section No Information Health Concerns No Information MEDICAL EQUIPMENT No Information MENTAL STATUS No Information FUNCTIONAL STATUS No Information ASSESSMENTS Encounter Date Diagnosis Assessment Notes Treatment Notes Treatm ent Clinical Notes Jul, Encounter for vasectomy (ICD-10 - Z30.2) PLAN OF TREATMENT Medication Medication Name Sig Start Date Stop Date Valium 10 MG 1 tablet as needed Orally as directed- 1 hour prior to procedure Aug, Referrals Referral Date Details Please evaluate and treat as needed, Michelle Solomon, [address], [place], [address], Next Appt Details Provider Name:Mook Carpenter, 09:15:00 AM, [address], , [place], [address], Insurance Providers Payer Name Payer Address Payer Phone Insured Name Patient Relati onship to Insured Coverage Start Date Coverage End Date [facility] [address] [facility] [phone] FLORY VAZQUEZ self
--- OUTSIDE RECORDS SUMMARY | 2021-10-08 12:27 | CCD | Continuity of Care Document ---
Author Author Perry BARKER MD Organization Unknown Address [address] [address] Phone [phone] Care Team Providers Care Cocoa Milling Machine Operator Name Role Phone Aguilar Bolivar DO AUTM [phone] Problems Description No Information Available Social History Type Date Description Comments Sex Unknown ETOH Use Rarely consumes alcohol Tobacco Use Start: Unknown Denies Smoking Allergies and adverse reactions Description No Known Drug Allergies Medications Description No Active Medications Immunizations Description No Information Available Vital Signs Date Vital Result Comment 09/25/2021 2:09pm Height 68 inches 5'8" Weight 252.00 lb BMI (Body Mass Index) 38.3 kg/m2 Results Description No Information Available Procedures Date Code Description Status 08/30/2021 67402 Office/Outpatient Established Lo w MDM 20-29 Min Completed 08/30/2021 13480 X-Ray Ankle Complete Completed 08/30/2021 65696 X-Ray Tibia & Fibula Ap & Latera l 2 Views Completed Medical Devices Description No Information Available Encounters Type Date Location Provider Dx Diagnosis Office Visit 08/30/2021 9:30a [place] Kristen Barker MD S9 3.401A Sprain of unspecified ligament of right ankle, init encntr Assessments Date Code Description Provider 09/30/2021 S93.401D Sprain of unspecifie d ligament of right ankle, subsequent encounter Kristen Barker MD 08/30/2021 S93.401A Sprain of unspecifie d ligament of right ankle, initial encounter Kristen Barker MD 08/30/2021 S93.401A Sprain of unspecifie d ligament of right ankle, initial encounter Kristen Barker MD Plan of Treatment 09/30/2021 - Kristen Barker MD* S93.401D Sprain of unspecified ligament of right ankle, subsequent encounter* New Xrays:* MRI RT Ankle, Ordered: 09/30/21 * Follow up:* [facility] BOOK IT f/u after R ankle mri for results with DPV Functional Status Description No Information Available Mental Status Description No Information Available Referrals Refer to Dr Reason for Referral Status Appt Date Authorization for PT eval fo r R ankle. [address], [address], [address]. Patient going to [facility]. Passed to PT department. Created Authorization for 17515, R ankle, 64-15 min visi ts. Created Nikkie Barker MD OV M25.571 PAIN IN RT ANK LE AND JOINTS OF RIGHT FOOT Created [address] [facility], [address] [place] [address] [phone]
--- OUTSIDE RECORDS SUMMARY | 2021-10-08 12:28 | CCD ---
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 [employer] Name Role Phone Darrius CRISTOBAL Unavailable Unavailable LEVAR I STANLEY PA Unavailable Unavailable LEVAR I STANLEY PA Unavailable Unavailable DRGYPSY I STANLEY PA Unavailable Unavailable DRGYPSY I STANLEY PA Unavailable Unavailable DRGYPSY I STANLEY PA Unavailable Unavailable LEVAR I STANLEY PA Unavailable Unavailable LEVAR I STANLEY PA Unavailable Unavailable LEVAR I STANLEY PA Unavailable Unavailable DRAZEK, I STANLEY PA Unavailable Unavailable DRAZEK, I STANLEY PA Unavailable Unavailable DRAZEK, I STANLEY PA Unavailable Unavailable DRAZEK, I STANLEY PA Unavailable Unavailable DRAZEK, I STANLEY PA Unavailable Unavailable DRAZEK, I STANLEY PA Unavailable Unavailable DRAZEK, I STANLEY PA Unavailable Unavailable DRAZEK, I STANLEY PA Unavailable Unavailable DRAZEK, I STANLEY PA Unavailable Unavailable DRAZEK, I STANLEY PA Unavailable Unavailable DRAZEK, I STANLEY PA Unavailable Unavailable DRAZEK, I STANLEY PA Unavailable Unavailable DRAZEK, I STANLEY PA Unavailable Unavailable DRAZEK, I STANLEY PA Unavailable Unavailable DRAZEK, I STANLEY PA Unavailable Unavailable DRAZEK, I STANLEY PA Unavailable Unavailable DRAZEK, I STANLEY PA Unavailable Unavailable DRAZEK, I STANLEY PA Unavailable Unavailable DRAZEK, I STANLEY PA Unavailable Unavailable DRAZEK, I STANLEY PA Unavailable Unavailable DRAZEK, I STANLEY PA Unavailable Unavailable Nikkie Hood MD Unavailable Unavailable Nikkie Hood MD Unavailable Unavailable Nikkie Hood MD Unavailable Unavailable Nikkie Hood MD Unavailable Unavailable Nikkie Hood MD Unavailable Unavailable Nikkie Hood MD Unavailable Unavailable Nikkie Hood MD Unavailable Unavailable Nikkie Hood MD Unavailable Unavailable Nikkie Hood MD Unavailable Unavailable Nikkie Hood MD Unavailable Unavailable Nikkie Hood MD Unavailable Unavailable Nikkie Hood MD Unavailable Unavailable Nikkie Hood MD Unavailable Unavailable Nikkie Hood MD Unavailable Unavailable Nikkie Hood MD Unavailable Unavailable Nikkie Hood MD Unavailable Unavailable Nikkie Hood MD Unavailable Unavailable Nikkie Hood MD Unavailable Unavailable Nikkie Hood MD Unavailable Unavailable Nikkie Hood MD Unavailable Unavailable Nikkie Hood MD Unavailable Unavailable Nikkie Hood MD Unavailable Unavailable Nikkie Hood MD Unavailable Unavailable Nikkie Hood MD Unavailable Unavailable Nikkie Hood MD Unavailable Unavailable Nikkie Hood MD Unavailable Unavailable Nikkie Hood MD Unavailable Unavailable Nikkie Hood MD Unavailable Unavailable Nikkie Hood MD Unavailable Unavailable Vaneenenaam, Nikkie Sampson MD Unavailable Unavailable Vaneenenaam, Nikkie Sampson MD Unavailable Unavailable Vaneenenaam, Nikkie Sampson MD Unavailable Unavailable Vaneenenaam, Nikkie Sampson MD Unavailable Unavailable Vaneenenaam, Nikkie Sampson MD Unavailable Unavailable Vaneenenaam, Nikkie Sampson MD Unavailable Unavailable Vaneenenaam, Nikkie Sampson MD Unavailable Unavailable Vaneenenaam, Nikkie Sampson MD Unavailable Unavailable Vaneenenaam, Nikkie Sampson MD Unavailable Unavailable Vaneenenaam, Nikkie Sampson MD Unavailable Unavailable Vaneenenaam, Nikkie Sampson MD Unavailable Unavailable Vaneenenaam, Nikkie Sampson MD Unavailable Unavailable Vaneenenaam, Nikkie Sampson MD Unavailable Unavailable Vaneenenaam, Nikkie Sampson MD Unavailable Unavailable Vaneenenaam, Nikkie Sampson MD Unavailable Unavailable Vaneenenaam, Nikkie Sampson MD Unavailable Unavailable Vaneenenaam, Nikkie Sampson MD Unavailable Unavailable Re-disclosure Warning The records that you [...] is protected by Article 27-F of the [facility] Public Health law. If you continue you may have access to information: Regarding HIV / AIDS; Provided by facilities licensed or operated by the [facility] Office of Mental Health; or Provided by the [facility] Office for People With Developmental Disabilities. If such information is present, then the following [facility] mandated warning applies: This information has [...] law may result in a fine or group home sentence or both. A general authorization for the release of medical or other information is NOT sufficient authorization for further disc losure. Encounters Encounter Providers Location Date Indications Data Source(s ) Unknown [address] [facility] [address] 09/03/2021 12:00:00 AM EDT eCW1 ([facility]) OFFICE OUTPATIENT VISIT 15 MINUTES Attender: Nikkie farnsworth MD Physical Therapy 08/30/2021 09:30:00 AM EDT MEDENT ([facility]) [place] [address] [facility] [address] 08/14/2021 12:00:00 AM EDT eCW1 ([facility]) OFFICE OUTPATIENT VISIT 15 MINUTES Attender: STANLEY KERNS Phys ical Therapy 02/26/2021 02:20:00 PM EDT MEDENT ([facility]) OFFICE OUTPATIENT VISIT 15 MINUTES Attender: STANLEY KERNS Phys ical Therapy 2021 07:00:00 PM EDT MEDENT ([facility]) OFFICE OUTPATIENT NEW 30 MINUTES Attender: STANLEY KERNS Physic al Therapy 01/31/2021 02:30:00 PM EST MEDENT ([facility]) [place] [address] [facility] [address] 01/31/2021 12:00:00 AM EST eCW1 ([facility]) [place] [address] [facility] [place] [address] 01/23/2021 12:00:00 AM EST eCW1 ([facility]) [place] [address] [facility] [address] 09/20/2020 12:00:00 AM EDT eCW1 ([facility]) Unknown [address] [facility] [place] [address] 09/12/2020 12:00:00 AM EDT eCW1 ([facility]) Outpatient [address] [facility] [place] [address] 09/11/2020 12:00:00 AM EDT eCW1 ([facility]) [place] [address] [facility] [address] 09/10/2020 12:00:00 AM EDT eCW1 ([facility]) Immunizations Vaccine Date Status Description Data Source(s) COVID-19 VACCINE Moderna 04/27/2021 12:00:00 AM EDT completed [facility] Vaccine Series Complete: YESThis Data wa s Submitted to [facility] Via [employer]. COVID-19 VACCINE Moderna 03/27/2021 12:00:00 AM EDT completed [facility] Vaccine Series Complete: NOThis Data was Submitted to [facility] Via [employer]. Medications Medication Brand Name Start Date Product Form Dose Route Admi nistrative Instructions Pharmacy Instructions Status Indications Reaction Description Data Source(s) Diazepam 10 MG Oral Tablet [Valium] Valium 10 MG Valium 10 M G 09/04/2021 12:00:00 AM EDT 1.0 {tablet_as_needed} active [facility] 10 [facility] D[facility]am 10 MG Oral Tablet [Valium] Valium 10 MG Valium 10 M G 09/04/2021 12:00:00 AM EDT 1.0 {tablet_as_needed} active Valium 10 MG [facility]CW[facility]) 100,000 unit/gram 07/31/2021 12:00:00 AM EDT cream 60 APPLY TO AFFECTED AREA(S) TWO TIMES A DAY FOR 7 DAYS APPLY TO AFFECTED AREA(S) TWO TIMES A DA Y FOR 7 DAYS SOLD: 07/31/2021 [facility] Ibuprofen 600 MG Oral Tablet Ibuprofen 01/31/2021 12:00:00 AM EST ORAL active MEDENT ([facility]) 500 mg 11/04/2020 12:00:00 AM EST capsule [...] FOR FOR NAUSEA AND VOMITING SOLD: 11/04/2020 [facility] Insurance Providers Payer name Policy type / Coverage type Policy ID Covered republican ID Covered republican's relationship to alcocer Policy Alcocer Plan Information [facility] [id number] SP [id number] Managed Care - Community Plan [facility] P [id number] S [id number] MEDICAID M [id number] Self [id number] [facility] I [id number] Self [id number] Medicaid S [id number] S [id number] Managed Care - Community Plan [facility] P [id number] S [id number] Medicaid S [id number] S [id number] [facility] COMMUNITY PLAN MCDO [id number] SP [id number] Managed Care - Community Plan [facility] P [id number] S [id number] SELF PAY UNAVAILABLE SP UNAVAILA BLE [facility]) P [id number] S [id number] [facility]([place]) P [id number] S [id number] Medicaid Dental S [id number] S [id number] [facility] PUPILS BENEFIT PLAN S [id number] S [id number] [facility] [id number] SP [id number] [facility]([place]) O [id number] S [id number] ANSI-Medicaid [id number] ANSI-Medicaid [id number] ANSI-Medicaid [id number] ANSI-Medicaid [id number] [facility] COMMUNITY PL[facility] [id number] SP [id number] [facility] COMMUNITY PL[facility] [id number] SP [id number] MEDICAID [id number] SP [id number] Problems, Conditions, and Diagnoses No Information Surgeries/Procedures Procedure Description Date Indications Data Source(s) RADIOLOGIC EXAMINATION TIBIA & FIBULA 2 VIEWS 08/30/20 21 12:00:00 AM EDT VON ([facility]) RADEX ANKLE COMPLETE MINIMUM 3 VIEWS 08/30/2021 12:00: 00 AM EDT MEDENT ([facility]) OFFICE OUTPATIENT VISIT 15 MINUTES 08/30/2021 12:00:00 AM EDT [facility] ([facility]) MRI Upper Extremity Other Than Joint 02/18/2021 12:00: 00 AM EDT [facility] ([facility]) RADEX WRIST 2 VIEWS 2021 12:00:00 AM EDT [facility] ([facility]) Results ID Date Data Source [id number] 07/10/2021 10:10:00 AM EDT [facility] Name Value Range Interpretation Code Description Data Ellen rce(s) Supporting Document(s) SARS-CoV-2 (COVID 19) NEGATIVE - SARS-CoV-2 (COVID19) [facility] This lab was ordered by [facility] a nd reported by [facility]. ID Date Data Source [id number] 04/07/2021 12:00:00 AM EDT [facility] Name Value Range Interpretation Code Description Data Ellen rce(s) Supporting Document(s) SARS-CoV2 Rapid Antigen Negative [facility] This lab was ordered by [facility] and reported by [facility]. ID Date Data Source [id number] 03/25/2021 12:00:00 AM EDT [facility] Name Value Range Interpretation Code Description Data Ellen rce(s) Supporting Document(s) SARS-CoV2 Rapid Antigen Negative [facility] This lab was ordered by [facility] and reported by [facility]. ID Date Data Source [id number] 01/03/2021 12:00:00 AM EST [facility] Name Value Range Interpretation Code Description Data Ellen rce(s) Supporting Document(s) SARS-CoV2 Rapid Antigen Negative [facility] This lab was ordered by [facility] and reported by [facility]. ID Date Data Source [id number] 12/21/2020 02:28:00 PM EST MEDENT ([facility]) Name Value Range Interpretation Code Description Data Ellen rce(s) Supporting Document(s) Creatinine For GFR 0.75 mg/dL 0.55-1.30 [facility] ([facility] ) Glomerular Filtration Rate [facility] <content>Units are mL/min/1.73 m2</content>
<content></content>
<content>Chronic Kidney Disease Staging per NKF:</content>
<content></content>
<content>Stage I & II GFR >=60 Normal to Mildly Decreased</content>
<content>Stage III GFR 30- 59 Moderately Decreased</content>
<content>Stage IV GFR 15-29 Severely Decreased</content>
<content>Stage V GFR <15 Very Little GFR Left</content>
<content>ESRD GFR <15 on TRANSMITTER OPERATOR</content>
<content></content> ID Date Data Source [id number] 12/21/2020 02:28:00 PM EST MEDENT ([facility]) Name Value Range Interpretation Code Description Data Ellen rce(s) Supporting Document(s) Urea nitrogen [Mass/volume] in Serum or Plasma 14 mg/dL 7-18 [facility] ([facility]) ID Date Data Source [id number] 12/15/2020 12:00:00 AM EST [facility] Name Value Range Interpretation Code Description Data Ellen rce(s) Supporting Document(s) SARS-CoV2 Rapid Antigen Negative [facility] and reported by [facility]. ID Date Data Source [id number] 11/13/2020 12:00:00 AM EST [facility] Name Value Range Interpretation Code Description Data Ellen rce(s) Supporting Document(s) SARS coronavirus 2 RNA [facility] This lab was ordered by [facility] and rep orted by [facility]. ID Date Data Source [id number] 11/03/2020 06:17:00 PM EST [facility] Name Value Range Interpretation Code Description Data Ellen rce(s) Supporting Document(s) SARS coronavirus 2 RNA [Presence] in Res piratory specimen by ERNESTINE with probe detection [facility] This lab was ordered by [facility] a nd reported by [facility]. ID Date Data Source [id number] 10/26/2020 02:00:00 PM EST [facility] Name Value Range Interpretation Code Description Data Ellen rce(s) Supporting Document(s) SARS coronavirus 2 RNA [facility] This lab was ordered by [facility] and reported by [facility]. ID Date Data Source [facility] [place] 09/12/2020 09:28:50 AM EDT eCW1 ([facility]) Name Value Range Interpretation Code Description Data Ellen rce(s) Supporting Document(s) [facility] [place] eCW1 ([facility]) ID Date Data Source Urinalysis, no micro 09/11/2020 10:41:54 AM EDT eCW1 ([facility]) Name Value Range Interpretation Code Description Data Ellen rce(s) Supporting Document(s) 1.025 Spec gravity eCW1 ([facility]) neg Nitrate eCW1 ([facility]) 5 pH eCW1 ([facility]) trace Protein eCW1 ([facility]) neg Leukocyte eCW1 ([facility]) neg Ketones eCW1 ([facility]) neg Glucose eCW1 ([facility]) neg Bilirubin eCW1 ([facility]) neg Urobili eCW1 ([facility]) neg Blood eCW1 ([facility]) yes Internal QC Acceptable (Y/N) e CW[facility]) Procedure Social History Code Duration Value Status Description Data Source(s ) Smoking 09/03/2021 12:00:00 AM EDT Never Smoker completed Never S moker eCW1 ([facility]) Smoking 09/03/2021 12:00:00 AM EDT Never Smoker completed Never S moker eCW1 ([facility]) Smoking 01/31/2021 12:00:00 AM EST Never Smoker completed Never S moker eCW1 ([facility]) Smoking 09/20/2020 12:00:00 AM EDT Never Smoker completed Never S moker eCW1 ([facility]) Smoking 09/20/2020 12:00:00 AM EDT Never Smoker completed Never S moker eCW1 ([facility]) Smoking 09/11/2020 12:00:00 AM EDT Never Smoker completed Never S moker eCW1 ([facility]) Smoking 09/11/2020 12:00:00 AM EDT Never Smoker completed Never S moker eCW1 ([facility]) Vital Signs ID Date Data Source UNK Name Value Range Interpretation Code Description Data Source(s) Body mass index (BMI) [Ratio] 38.3 kg/m2 38.3 k g/m2 [facility] ([facility]) Body height 68 [in_i] 68 [in_i] MEDENT ([facility]) 5'8" Body weight 252.00 [lb_av] 252.00 [lb_av] MEDEN T ([facility]) Body weight 251 [lb_av] 251 [lb_av] eCW1 ([facility]) Body height 67 [in_i] 67 [in_i] eCW1 ([facility]) Body mass index (BMI) [Ratio] 39.31 kg/m2 39.31 kg/m2 eCW1 ([facility]) Heart rate 72 /min 72 /min eCW1 ([facility]) Respiratory rate 16 /min 16 /min eCW1 ([facility]) Body temperature 98.2 [degF] 98.2 [degF] [facility] Systolic blood pressure 121 mm[Hg] 121 mm[Hg] e CW1 ([facility]) Diastolic blood pressure 77 mm[Hg] 77 mm[Hg] eCW1 [facility]) Body weight 251.6 [lb_av] 251.6 [lb_av] eCW1 ([facility]) Body height 67 [in_i] 67 [in_i] eCW1 ([facility]) Body mass index (BMI) [Ratio] 39.40 kg/m2 39.40 kg/m2 eCW1 [facility]) Heart rate 65 /min 65 /min eCW1 ([facility]) Respiratory rate 17 /min 17 /min eCW1 ([facility]) Body temperature 97.3 [degF] 97.3 [degF] eCW[facility] Systolic blood pressure 123 mm[Hg] 123 mm[Hg] e CW1 ([facility]) Diastolic blood pressure 79 mm[Hg] 79 mm[Hg] eCW1 [facility]) Body weight 250 [lb_av] 250 [lb_av] eCW1 ([facility]) Body height 67 [in_i] 67 [in_i] eCW1 ([facility]) Body mass index (BMI) [Ratio] 39.15 kg/m2 39.15 kg/m2 eCW1 ([facility]) Heart rate 73 /min 73 /min eCW1 ([facility]) Respiratory rate 18 /min 18 /min eCW1 ([facility]) Body temperature 97.3 [degF] 97.3 [degF] eCW1 ( [facility] Systolic blood pressure 151 mm[Hg] 151 mm[Hg] e CW1 ([facility]) Diastolic blood pressure 79 mm[Hg] 79 mm[Hg] eCW1 ([facility]) Patient Treatment Plan of Care Planned Activity Planned Date Details Description Data Source (s) Diazepam 10 MG Oral Tablet [Valium] 09/04/2021 12:00:00 AM EDT eCW1 [facility]) Diazepam 10 MG Oral Tablet [Valium] 09/04/2021 12:00:00 AM EDT eCW1 [facility])
--- OUTSIDE RECORDS SUMMARY | 2021-10-08 14:12 | CCD ---
Author Author [facility] Organization [facility] Address Unknown Phone Unavailable Care Team Providers Care Fire Alarm Inspector Name Role Phone Darrius CRISTOBAL Unavailable Unavailable Darrius CRISTOBAL STANLEY PA Unavailable Unavailable LEVAR I STANLEY [...] Unavailable Nikkie Hood MD Unavailable Unavailable Nikkie Hodo MD Unavailable Unavailable Nikkie Hood MD Unavailable Unavailable Nikkie Hood MD Unavailable Unavailable Nikkie Hood MD Unavailable Unavailable Nikkie Hood MD Unavailable Unavailable Nikkie Hood MD Unavailable Unavailable Nikkie Hood MD Unavailable Unavailable Nikkie Hood MD Unavailable Unavailable Nikkie Hood MD Unavailable Unavailable Nikkie Hood MD Unavailable Unavailable Nikkie Hood MD Unavailable Unavailable VaneenenaamNikkie MD Unavailable Unavailable VaneenenaamNikkie MD Unavailable Unavailable VaneenenaamNikkie MD Unavailable Unavailable VaneenenaamNikkie MD Unavailable Unavailable VaneenenaamNikkie MD Unavailable Unavailable VaneenenaamNikkie MD Unavailable Unavailable VaneenenaamNikkie MD Unavailable Unavailable VaneenenaamNikkie MD Unavailable Unavailable VaneenenaamNikkie MD Unavailable Unavailable VaneenenaamNikkie MD Unavailable Unavailable VaneenenaamNikkie MD Unavailable Unavailable VaneenenaamNikkie MD Unavailable Unavailable VaneenenaamNikkie MD Unavailable Unavailable VaneenenaamNikkie MD Unavailable Unavailable VaneenenaamNikkie MD Unavailable Unavailable VaneenenaamNikkie MD Unavailable Unavailable VaneenenaamNikkie MD Unavailable Unavailable Re-disclosure Warning The records [...] is protected by Article 27-F of the [facility] Public Health law. If you continue you may have access to information: Regarding HIV / AIDS; Provided by facilities licensed or operated by the [facility] Office of Mental Health; or Provided by the [facility] Office for People With Developmental Disabilities. If such information is present, then the following [facility] mandated warning applies: This information has [...] law may result in a fine or long term sentence or both. A general authorization for the release of medical or other information is NOT sufficient authorization for further disc losure. Encounters Encounter Providers Location Date Indications Data Source(s ) [place] [address] [address] 09/03/2021 12:00:00 AM EDT [facility]CW1 [facility] OFFICE OUTPATIENT VISIT 15 MINUTES Attender: Nikkie farnsworth MD Physical Therapy 08/30/2021 09:30:00 AM EDT MED[facility] ([facility]) Unknown [address] [address] 08/14/2021 12:00:00 AM EDT eCW1 ([facility] [place] OFFICE OUTPATIENT VISIT 15 MINUTES Attender: STANLEY KERNS Phys ical Therapy 02/26/2021 02:20:00 PM EDT MED[facility] ([facility]) OFFICE OUTPATIENT VISIT 15 MINUTES Attender: STANLEY KERNS Phys ical Therapy 2021 07:00:00 PM EDT MED[facility] ([facility]) OFFICE OUTPATIENT NEW 30 MINUTES Attender: STANLEY KERNS Physic al Therapy 01/31/2021 02:30:00 PM EST MED[facility] ([facility]) Outpatient [address] [address] 01/31/2021 12:00:00 AM EST eCW1 ([facility] [place]) [place] [address] [address] 01/23/2021 12:00:00 AM EST [facility] [place] [address] [address] 09/20/2020 12:00:00 AM EDT eCW1 ([facility] [place]) [place] [address] [address] 09/12/2020 12:00:00 AM EDT eCW1 ([facility]) [place] [address] [facility] [place] [address] 09/11/2020 12:00:00 AM EDT eCW1 [facility]) [place] [address] [address] 09/10/2020 12:00:00 AM EDT eCW1 ([facility]) Immunizations Vaccine Date Status Description Data Source(s) COVID-19 VACCINE Moderna 04/27/2021 12:00:00 AM EDT completed [facility] Vaccine Series Complete: YESThis Data wa s Submitted to [facility]. COVID-19 VACCINE Moderna 03/27/2021 12:00:00 AM EDT completed [facility] Vaccine Series Complete: NOThis Data was Submitted to [facility]. Medications Medication Brand Name Start Date Product Form Dose Route Admi nistrative Instructions Pharmacy Instructions Status Indications Reaction Description Data Source(s) Diazepam 10 MG Oral Tablet [Valium] Valium 10 MG Valium 10 M G 09/04/2021 12:00:00 AM EDT 1.0 {tablet_as_needed} active Valium 10 MG [facility] Diazepam 10 MG Oral Tablet [Valium] Valium 10 MG Valium 10 M G 09/04/2021 12:00:00 AM EDT 1.0 {tablet_as_needed} active Valium 10 MG eCW1 [facility]) 100,000 unit/gram 07/31/2021 12:00:00 AM EDT cream 60 APPLY TO AFFECTED AREA(S) TWO TIMES A DAY FOR 7 DAYS APPLY TO AFFECTED AREA(S) TWO TIMES A DA Y FOR 7 DAYS SOLD: 07/31/2021 [facility] Ibuprofen 600 MG Oral Tablet Ibuprofen 01/31/2021 12:00:00 AM EST ORAL active MEDENT ([facility]) 500 mg 11/04/2020 12:00:00 AM [...] relationship to piedra Policy Piedra Plan Information [facility] MCDO [id number] SP [id number] Managed Care - Community Plan [facility] P [id number] S [id number] MEDICAID M [id number] Self [id number] [facility] I [id number] Self [id number] Medicaid S [id number] S [id number] Managed Care - Community Plan [facility] P [id number] S [id number] Medicaid S [id number] S [id number] [facility] MCDO [id number] SP [id number] Managed Care - Community Plan [facility] P [id number] S [id number] SELF PAY UNAVAILABLE SP UNAVAILA BLE [facility]) P [id number] S [id number] [facility] P [id number] S [id number] Medicaid Dental S [id number] S [id number] [facility] PUPILS BENEFIT PLAN S [id number] S [id number] [facility] [id number] SP [id number] [facility]) O [id number] S [id number] ANSI-Medicaid [id number] ANSI-Medicaid [id number] ANSI-Medicaid [id number] ANSI-Medicaid [id number] [facility] [id number] SP [id number] [facility] [id number] SP [id number] MEDICAID [id number] SP [id number] Problems, Conditions, and Diagnoses No Information Surgeries/Procedures Procedure Description Date Indications Data Source(s) RADIOLOGIC EXAMINATION TIBIA & FIBULA 2 VIEWS 08/30/20 21 12:00:00 AM EDT MED[facility] ([facility]) RADEX ANKLE COMPLETE MINIMUM 3 VIEWS 08/30/2021 12:00: 00 AM EDT [facility] ([facility]) OFFICE OUTPATIENT VISIT 15 MINUTES 08/30/2021 12:00:00 AM EDT [facility] ([facility]) MRI Upper Extremity Other Than Joint 02/18/2021 12:00: 00 AM EDT [facility] ([facility]) RADEX WRIST 2 VIEWS 2021 12:00:00 AM EDT [facility] ([facility]) Results ID Date Data Source [id number] 07/10/2021 10:10:00 AM EDT [facility] Name Value Range Interpretation Code Description Data Ellen rce(s) Supporting Document(s) SARS-CoV-2 (COVID 19) NEGATIVE - SARS-CoV-2 (COVID19) [facility] This lab was ordered by [facility] a nd reported by [facility]. ID Date Data Source [id number] 04/07/2021 12:00:00 [...] Negative [facility] This lab was ordered by [facility] and reported by [facility]. ID Date Data Source [id number] 01/03/2021 12:00:00 AM EST [facility] Name Value Range Interpretation Code Description Data Ellen rce(s) Supporting Document(s) SARS-CoV2 Rapid Antigen Negative [facility] This lab was ordered by [facility] and reported by [facility]. ID Date Data Source [id number] 12/21/2020 02:28:00 PM EST [facility] ([facility]) Name Value Range Interpretation Code Description Data Ellen rce(s) Supporting Document(s) Creatinine For GFR 0.75 mg/dL 0.55-1.30 [facility] ([facility]) Glomerular Filtration Rate Laboratory test result [facility] ([facility]) <content>Units are mL/min/1.73 m2</content>
<content></content>
<content>Chronic Kidney Disease Staging per NKF:</content>
<content></content>
<content>Stage I & II GFR >=60 Normal to Mildly Decreased</content>
<content>Stage III GFR 30- 59 Moderately Decreased</content>
<content>Stage IV GFR 15-29 Severely Decreased</content>
<content>Stage V GFR <15 Very Little GFR Left</content>
<content>ESRD GFR <15 on CALL TAKER</content>
<content></content> ID Date Data Source [id number] 12/21/2020 02:28:00 PM EST [facility] ([facility]) Name Value Range Interpretation Code Description Data Ellen rce(s) Supporting Document(s) Urea nitrogen [Mass/volume] in Serum or Plasma 14 mg/dL 7-18 [facility] ([facility]) ID Date Data Source [id number] 12/15/2020 12:00:00 AM EST [facility] Name Value Range Interpretation Code Description Data Ellen rce(s) Supporting Document(s) SARS-CoV2 Rapid Antigen Negative [facility] and reported by [facility]. ID Date Data Source [id number] 11/13/2020 12:00:00 AM EST [facility] Name Value Range Interpretation Code Description Data Ellen rce(s) Supporting Document(s) SARS coronavirus 2 RNA [facility] This lab was ordered by [facility] and rep orted by [facility]. ID Date Data Source [id number] 11/03/2020 06:17:00 PM EST [facility] Name Value Range Interpretation Code Description Data Ellen rce(s) Supporting Document(s) SARS coronavirus 2 RNA [Presence] in Res piratory specimen by ERNESTINE with probe detection [facility] This lab was ordered by [facility] a nd reported by [facility]. ID Date Data Source [id number] 10/26/2020 02:00:00 PM EST [facility] Name Value Range Interpretation Code Description Data Ellen rce(s) Supporting Document(s) SARS coronavirus 2 RNA [facility] This lab was ordered by [facility] and reported by [facility]. ID Date Data Source [facility] [place] 09/12/2020 09:28:50 AM EDT eCW1 ([facility]) Name Value Range Interpretation Code Description Data Ellen rce(s) Supporting Document(s) [facility] [place] eCW1 ([facility]) ID Date Data Source Urinalysis, no micro 09/11/2020 10:41:54 AM EDT eCW1 ([facility]) Name Value Range Interpretation Code Description Data Ellen rce(s) Supporting Document(s) 1.025 Spec gravity eCW1 ([facility]) neg Nitrate eCW1 ([facility] 5 pH eCW1 [facility] trace Protein eCW1 ([facility]) neg Leukocyte eCW1 ([facility]) neg Ketones eCW1 ([facility]) neg Glucose eCW1 ([facility]) neg Bilirubin eCW1 ([facility]) neg Urobili eCW1 ([facility]) neg Blood eCW1 ([facility]) yes Internal QC Acceptable (Y/N) e CW1 ([facility]) Procedure Social History Code Duration Value Status Description Data Source(s ) Smoking 09/03/2021 12:00:00 AM EDT Never Smoker completed Never S moker eCW[facility] ([facility]) Smoking 09/03/2021 12:00:00 AM EDT Never Smoker completed Never S moker eCW1 ([facility]) Smoking 01/31/2021 12:00:00 AM EST Never Smoker completed Never S moker eCW1 ([facility]) Smoking 09/20/2020 12:00:00 AM EDT Never Smoker completed Never S moker eCW1 ([facility]) Smoking 09/20/2020 12:00:00 AM EDT Never Smoker completed Never S moker eCW1 ([facility]) Smoking 09/11/2020 12:00:00 AM EDT Never Smoker completed Never S moker eCW1 ([facility]) Smoking 09/11/2020 12:00:00 AM EDT Never Smoker completed Never S moker eCW1 ([facility]) Vital Signs ID Date Data Source UNK Name Value Range Interpretation Code Description Data Source(s) Body mass index (BMI) [Ratio] 38.3 kg/m2 38.3 k g/m2 [facility] ([facility]) Body height 68 [in_i] 68 [in_i] [facility] ([facility]) 5'8" Body weight 252.00 [lb_av] 252.00 [lb_av] MEDEN T ([facility]) Body weight 251 [lb_av] 251 [lb_av] eCW1 ([facility]) Body height 67 [in_i] 67 [in_i] eCW1 ([facility]) Body mass index (BMI) [Ratio] 39.31 kg/m2 39.31 kg/m2 [facility]CW[facility] Heart rate 72 /min 72 /min eCW1 ([facility]) Respiratory rate 16 /min 16 /min eCW1 ([facility]) Body temperature 98.2 [degF] 98.2 [degF] e[facility] Systolic blood pressure 121 mm[Hg] 121 mm[Hg] e CW1 ([facility]) Diastolic blood pressure 77 mm[Hg] 77 mm[Hg] eCW1 [facility]) Body weight 251.6 [lb_av] 251.6 [lb_av] eCW1 ([facility]) Body height 67 [in_i] 67 [in_i] eCW1 ([facility]) Body mass index (BMI) [Ratio] 39.40 kg/m2 39.40 kg/m2 eCW1 [facility]) Heart rate 65 /min 65 /min eCW1 ([facility]) Respiratory rate 17 /min 17 /min eCW1 ([facility]) Body temperature 97.3 [degF] 97.3 [degF] eCW1 ( [facility]) Systolic blood pressure 123 mm[Hg] 123 mm[Hg] e CW1 ([facility]) Diastolic blood pressure 79 mm[Hg] 79 mm[Hg] eCW1 [facility]) Body weight 250 [lb_av] 250 [lb_av] eCW1 ([facility]) Body height 67 [in_i] 67 [in_i] eCW1 ([facility]) Body mass index (BMI) [Ratio] 39.15 kg/m2 39.15 kg/m2 eCW1 ([facility]) Heart rate 73 /min 73 /min eCW1 ([facility]) Respiratory rate 18 /min 18 /min eCW1 ([facility]) Body temperature 97.3 [degF] 97.3 [degF] eCW[facility] ( [facility]) Systolic blood pressure 151 mm[Hg] 151 mm[Hg] e CW1 ([facility]) Diastolic blood pressure 79 mm[Hg] 79 mm[Hg] eCW1 [facility] Patient Treatment Plan of Care Planned Activity Planned Date Details Description Data Source (s) Diazepam 10 MG Oral Tablet [Valium] 09/04/2021 12:00:00 AM EDT eCW1 [facility]) Diazepam 10 MG Oral Tablet [Valium] 09/04/2021 12:00:00 AM EDT eCW1 ([facility])
--- NOTE | 2021-10-08 15:42 | REP ---
INDICATION: shortness of breath since covid 1 year ago. COMPARISON: 01/04/2021 TECHNIQUE: PA and lateral. FINDINGS: The mediastinum and cardiac silhouette are normal. The lung marie are clear and without acute consolidation, effusion, or pneumothorax. The skeletal structures are intact and normal. IMPRESSION: No acute cardiopulmonary process. <Electronically signed by Leonardo Small > 10/08/21 1539
[2021-10-08 16:52] VITALS: BP 114/67
== END 2021-10-08 16:57 | disposition home or self-care (01) ==
LOC: M ED 12:21
DX: R05.9 Cough, unspecified (principal); J31.0 Chronic rhinitis; Z86.16 Personal history of COVID-19

== ENCOUNTER 2022-11-17 10:53 | Emergency (ER) | payer OTHER, MEDICAID ==
[~2022-11-17] VITALS: Ht 172.7 cm; Wt 112.3 kg
[2022-11-17] MEDS ORDERED: ACET-683 PO (11:38)
[2022-11-17] MEDS ORDERED: IBUP200C25 PO (11:38)
[2022-11-17] MEDS ORDERED: IBUPROFEN 600MG TAB PO ONE (12:10)
[2022-11-17] MEDS ORDERED: PSEU120T19 PO (13:48)
[2022-11-17] MEDS ORDERED: IBUP-1022 PO (13:48)
[2022-11-17 13:52] VITALS: BP 136/68
== END 2022-11-17 13:59 | disposition home or self-care (01) ==
LOC: M ED 10:53
DX: J06.9 Acute upper respiratory infection, unspecified (principal); H65.05 Acute serous otitis media, recurrent, left ear; K58.9 Irritable bowel syndrome, unspecified; F33.1 Major depressive disorder, recurrent, moderate; Z79.899 Other long term (current) drug therapy; Z79.83 Long term (current) use of bisphosphonates

== ENCOUNTER → 2022-11-18 | Outpatient (REF) | payer OTHER, MEDICAID ==
[~2022-11-18] MED LIST changes: +ACET-683 PO; +IBUP-1022 PO; +IBUP200C25 PO; +PSEU120T19 PO
== END ==
LOC: M LAB REF 16:12
PROVIDERS: ATTEND Physician Assistant Medical
DX: J02.9 Acute pharyngitis, unspecified (principal)

== ENCOUNTER → 2023-02-20 | Outpatient (REF) | payer OTHER, MEDICAID | LOC: M LAB REF 16:15 | PROVIDERS: ATTEND Physician Assistant | DX: J02.9 Acute pharyngitis, unspecified (principal) ==

== ENCOUNTER → 2023-10-23 | Outpatient (REF) | payer OTHER, MEDICAID ==
[2023-10-23 17:49] LABS: BASO % 0.6 % (0.0-1.0); EOS # 0.4 10^3/uL (0.0-0.5); EOS % 5.6 % (0.0-3.0); HEMATOCRIT 45.5 % (42.0-52.0); HEMOGLOBIN 14.5 g/dl (13.5-17.5); LYMPH % 27.1 % (24.0-44.0); MEAN CORPUSCULAR HEMOGLOBIN 27.6 pg (27.0-33.0); MEAN CORPUSCULAR HGB CONC 31.9 g/dl (32.0-36.5); MEAN CORPUSCULAR VOLUME 86.7 fl (80.0-96.0); MONO # 0.6 10^3/uL (0.0-0.8); MONO % 8.1 % (2.0-8.0); NEUTROPHILS # 4.2 10^3/uL (1.5-8.5); NEUTROPHILS % 58.2 % (36.0-66.0); PLATELET COUNT, AUTOMATED 274 10^3/uL (150-450); RED BLOOD COUNT 5.25 10^6/uL (4.30-6.10); WHITE BLOOD COUNT 7.3 10^3/uL (4.0-10.0)
[2023-10-23 18:12] LABS: ALBUMIN 3.8 G/DL (3.2-5.2); ALKALINE PHOSPHATASE 95 U/L (46-116); ALT/SGPT 49 U/L (7.0-40); AST/SGOT 42 U/L (<34); BILIRUBIN,TOTAL 0.5 MG/DL (0.3-1.2); BLOOD UREA NITROGEN 15 MG/DL (9-23); CALCIUM LEVEL 9.2 MG/DL (8.5-10.1); CARBON DIOXIDE LEVEL 28 MMOL/L (20-31); CHLORIDE LEVEL 106 MMOL/L (98-107); CHOLESTEROL LEVEL 225 MG/DL (<200); CHOLESTEROL RISK RATIO 6.08 (<5); CREATININE FOR GFR 1.03 MG/DL (0.70-1.30); GLOMERULAR FILTRATION RATE > 60.0 (>60); GLUCOSE, FASTING 85 MG/DL (60-100); LDL CHOLESTEROL 139.6 MG/DL (<100); POTASSIUM SERUM 4.7 MMOL/L (3.5-5.1); SODIUM LEVEL 142 MMOL/L (136-145); TOTAL PROTEIN 7.3 G/DL (5.7-8.2); TRIGLYCERIDES LEVEL 242 MG/DL (<150)
[2023-10-23 18:14] LABS: THYROID STIMULATING HORMONE 6.196 uIU/ML (0.55-4.78); TOTAL 25(OH) VITAMIN D 15.7 NG/ML (20.0-100.0)
[2023-10-23 18:38] LABS: HEMOGLOBIN A1c 5.4 % (4.0-6.0)
== END ==
LOC: M LAB REF 16:35
PROVIDERS: ATTEND Nurse Practitioner Family
DX: E66.3 Overweight (principal); E55.9 Vitamin D deficiency, unspecified; R53.83 Other fatigue; Z11.9 Encounter for screening for infectious and parasitic diseases, unspecified

== ENCOUNTER → 2023-11-29 | Outpatient (CLI) | payer OTHER | LOC: M RAD 17:13 | PROVIDERS: ATTEND Nurse Practitioner Family | DX: J45.40 Moderate persistent asthma, uncomplicated (principal) ==

== ENCOUNTER → 2024-06-14 | Outpatient (REF) | payer OTHER | LOC: M LAB REF 16:15 | PROVIDERS: ATTEND Nurse Practitioner Family | DX: R94.6 Abnormal results of thyroid function studies (principal) ==

== ENCOUNTER 2024-08-02 11:09 | Day surgery (SDC) | payer OTHER ==
[~2024-08-02] VITALS: Ht 170.2 cm; Wt 122.0 kg
[~2024-08-02 11:09] MED LIST changes: +CETI-24 PO; +FLUTISP INH; +PANT40TA29 PO
[2024-08-02] MEDS ORDERED: fentaNYL 100 MCG/2 ML INJECTION As Ordered ONE (12:04)
[2024-08-02] MEDS ORDERED: propofoL 200 MG/20 ML VIAL As Ordered ONE (12:05)
[2024-08-02] MEDS: NS 1,000 ML IV ONE (12:05)
[2024-08-02] MEDS ORDERED: LIDOCAINE 2% 100MG/5ML SDV (FOR ANES.) As Ordered ONE (12:05)
[2024-08-02 12:28] VITALS: TEMP 97.9
[2024-08-02] MEDS: ALBUTEROL SULFATE 2.5MG/0.5ML INH NEB SOLN NEB ONE (13:09)
[2024-08-02 13:10] VITALS: BP 121/80; O2SAT 100
== END 2024-08-02 13:21 | disposition home or self-care (01) ==
LOC: M OPP 11:09
PROVIDERS: ATTEND Surgery
DX: K29.70 Gastritis, unspecified, without bleeding (principal); K44.9 Diaphragmatic hernia without obstruction or gangrene; R12 Heartburn; J45.909 Unspecified asthma, uncomplicated; Z79.51 Long term (current) use of inhaled steroids; Z79.899 Other long term (current) drug therapy
CPT/HCPCS: 43239; 88305; J3010

== ENCOUNTER → 2024-09-07 | Outpatient (CLI) | payer OTHER | LOC: M RAD 16:43 | PROVIDERS: ATTEND Otolaryngology | DX: J32.8 Other chronic sinusitis (principal) ==